=== PATIENT | female | born 2000 ===

== ENCOUNTER 2024-08-28 14:46 | Day surgery (SDC) | payer OTHER ==
[2024-08-28 15:16] VITALS: BMI 34.0
[2024-08-28] MEDS ORDERED: hydrALAZINE 20 MG/ML VIAL SLOW IVP PRN (15:27)
== END 2024-08-28 17:00 | disposition home or self-care (01) ==
LOC: CSHLD/OP 14:46
PROVIDERS: ATTEND Family Medicine
DX: O36.8130 Decreased fetal movements, third trimester, not applicable or unspecified (principal); O47.1 False labor at or after 37 completed weeks of gestation; Z79.899 Other long term (current) drug therapy; Z91.013 Allergy to seafood; Z91.018 Allergy to other foods; Z3A.38 38 weeks gestation of pregnancy
CPT/HCPCS: 76819; 99283